=== PATIENT | female | born 1955 | race Two or more races ===

== ENCOUNTER → 2018-01-16 | Outpatient (CLI) | payer OTHER | END | disposition home or self-care (01) | LOC: HKI 13:27 | DX: M65.841 Other synovitis and tenosynovitis, right hand (principal) | CPT/HCPCS: 73110; 73110-RT ==

== ENCOUNTER → 2018-02-17 | Outpatient (CLI) | payer OTHER | END | disposition home or self-care (01) | LOC: HKI 09:17 | DX: M65.4 Radial styloid tenosynovitis [de Quervain] (principal) | CPT/HCPCS: 20610 ==

== ENCOUNTER → 2018-04-01 | Outpatient (CLI) | payer OTHER | END | disposition home or self-care (01) | LOC: HKI 13:29 | DX: Z09 Encounter for follow-up examination after completed treatment for conditions other than malignant neoplasm (principal); M65.4 Radial styloid tenosynovitis [de Quervain] | CPT/HCPCS: Z7500 ==